=== PATIENT | female | born 2000 | race Caucasian/White ===

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

== ENCOUNTER → 2021-02-06 13:59 | Outpatient (CLI) | payer OTHER, SELFPAY ==
[2021-02-06 15:20] LABS: Add Manual Diff / Slide Review NO; Basophils Absolute Auto 0 /uL (0-100); Basophils Percent Auto 0.2 % (0-2); Eosinophils Absolute Auto 100 /uL (0-450); Eosinophils Percent Auto 1.9 % (2-4); Hematocrit 43.1 % (36-46); Hemoglobin 14.9 g/dL (12.0-16.0); Lymphocytes Absolute Auto 2000 /uL (1100-4500); Lymphocytes Percent Auto 36.3 % (25-40); Mean Corpuscular HGB Conc 34.6 % (30-36); Mean Corpuscular Hemoglobin 31.6 PG (26-34); Mean Corpuscular Volume 91.2 fL (80-100); Monocytes Absolute Auto 400 /uL (0-900); Monocytes Percent Auto 7.3 % (3-14); Neutrophils Absolute Auto 2900 /uL (1500-7000); Neutrophils Percent Auto 54.3 % (50-75); Platelet Count 220 X10^3/uL (150-400); Red Blood Cell Count 4.72 X10^6/uL (4.0-5.2); Red Cell Distribution Width 12.6 % (11.6-14.8); White Blood Cell Count 5.4 X10^3/uL (4.5-11.0)
[2021-02-06 15:25] LABS: Alanine Aminotransferase 20 IU/L (<35); Albumin 4.6 g/dL (3.5-5.0); Albumin Globulin Ratio 1.4 (1.0-2.8); Alkaline Phosphatase 57 U/L (38-126); Aspartate Aminotransferase 31 IU/L (14-36); BUN Creatinine Ratio 15.7 (6-22); Bilirubin Total 0.5 mg/dL (0.2-1.3); Blood Urea Nitrogen 14 mg/dL (7-17); Carbon Dioxide 26 mmol/L (22-32); Chloride 105 mmol/L (98-107); Estimated Glomerular Filt Rate > 60.0 mL/min (>60); Globulin 3.3 g/dL (1.7-4.1); Glucose 87 mg/dL (70-100); HEMOLYSIS < 15 (0-50); Sodium 139 mmol/L (137-145); Total Protein 7.9 g/dL (6.3-8.2)
== END ==
PROVIDERS: PCP Registered Nurse; Referring Provider Registered Nurse; Visit Provider Registered Nurse
DX: Z30.40 Encounter for surveillance of contraceptives, unspecified (principal)
CPT/HCPCS: 36415; 80053; 85025

== ENCOUNTER → 2021-02-10 09:14 | Outpatient (CLI) | payer OTHER, SELFPAY ==
--- NOTE | 2021-02-10 09:16 | DI.US.S_ITS ---
PROCEDURE: US PELVIC COMPLETE INDICATIONS: IRREGULAR VAGINAL BLEEDING TECHNIQUE: Real-time scanning was performed of the pelvic organs, with image documentation. Additional endovaginal scanning was necessary due to incomplete visualization of the adnexal and endometrial structures by transabdominal scanning. COMPARISON: None. FINDINGS: Uterus: Uterus is anteverted and normal in size at 6.6 x 4.0 x 2.0 cm. The endometrium measures 2.4 mm in combined thickness. No myometrial masses Ovaries: There is a thin-walled cystic mass in the midline low pelvis likely compressing the urinary bladder measuring 8.7 x 9.1 x 9.5 cm. No definite internal complexity. A normal left ovary was not identified. There is no adjacent free fluid. The right ovary measures 5.8 x 1.9 x 3.2 cm and contains several small follicles. Additionally, there is an involuting cystic structure irregularly shaped within the right ovary measuring 1.8 x 0.5 x 1.6 cm. A trace amount of right adnexal fluid is present. There is normal vascular flow in the right ovary. Other: No pathologic free abdominal or pelvic fluid. Both kidneys demonstrate normal morphology without hydronephrosis. IMPRESSION: 1. 9.5 cm thin-walled cystic mass in the pelvis, potentially left ovarian in origin, less likely large bladder diverticulum or persistently distended urinary bladder despite voiding efforts. For further evaluation of the structure, pelvic MRI with contrast is recommended. 2. Normal thickness endometrium. No explanation for irregular vaginal bleeding. Dictated by: Margareth Key M.D. on 02/10/2021 at 14:30 Approved by: Margareth Key M.D. on 02/10/2021 at 14:41
== END ==
PROVIDERS: PCP Registered Nurse; Referring Provider Registered Nurse; Visit Provider Registered Nurse
DX: N92.6 Irregular menstruation, unspecified (principal); R19.00 Intra-abdominal and pelvic swelling, mass and lump, unspecified site
CPT/HCPCS: 76830; 76856

== ENCOUNTER → 2021-02-20 14:02 | Outpatient (CLI) | payer OTHER, SELFPAY ==
--- NOTE | 2021-02-20 14:04 | DI.MRI.S_ITS ---
PROCEDURE: MR PELVIS WO/W CON INDICATIONS: pelvic cyst TECHNIQUE: Coronal HASTE, sagittal breath-hold T2 FSE; axial T1 FSE with and without fat saturation through the pelvis. Optional long- and short-axis uterine nonbreath-hold T2 FSE through the uterus. Sagittal or axial dynamic VIBE during administration of contrast. Post-contrast axial or coronal VIBE/2-D FLASH with fat saturation from the iliac crests to the symphysis. Optional diffusion weighted imaging and ADC may be performed. COMPARISON: None. FINDINGS: Image quality: Excellent. Uterus: Uterus is normal in size. Uterus is vertically oriented. Endometrium is normal in thickness. Endometrium measures 0.3 cm. Junctional zone is normal in thickness at 12 mm or less. Adnexa: Large midline T2 hyperintense unilocular cyst in the pelvis measuring 10.7 x 9.7 x 8.7 cm, (3/ and 4/). The circumscribed and thin-walled cyst demonstrates homogeneous T2 signal, nonenhancing, and no restricted diffusion. No intrinsic T1 hyperintense or fat signal. No septation seen. It is possible this originates from the left ovary as the left ovary is not visualized. The right ovary is normal in size with small ovarian follicles. Urinary system: There is mass effect on the urinary bladder. Distal ureters are non distended. Urethra appears normal in morphology. Nodes and vessels: No pelvic or inguinal adenopathy by size criteria. Iliac vessels are normal in size. Bowel and peritoneum: No pathologic free pelvic fluid. Inferior colon and small bowel loops are normal in caliber. Soft tissues: No inguinal hernias. No findings of pelvic floor incompetence in the absence of provocation. Bones: Marrow demonstrates normal overall signal. IMPRESSION: 1. Large midline pelvic cyst measuring 10.7 cm. Overall the cyst demonstrates benign imaging features including circumscribed margin and thin wall, lack of enhancement, and homogeneous T2 hyperintense signal. This could represent a benign cyst such as serous cystadenoma or a paraovarian cyst. -Recommend gynecological consultation given its large-sized 2. The left ovary is not identified. 3. Right ovary appears normal. 4. No adenomyosis. 5. No free fluid. Dictated by: Josr Gold M.D. on 02/20/2021 at 16:18 Approved by: Josr Gold M.D. on 02/20/2021 at 16:34
== END ==
PROVIDERS: PCP Registered Nurse; Referring Provider Registered Nurse; Visit Provider Registered Nurse
DX: N94.89 Other specified conditions associated with female genital organs and menstrual cycle (principal)
CPT/HCPCS: 72197; A9579

== ENCOUNTER → 2021-03-09 09:24 | Outpatient (CLI) | payer OTHER, SELFPAY ==
[2021-03-09 17:01] LABS: COVID19 -Nasal RAPID Negative (Negative)
== END ==
PROVIDERS: PCP Registered Nurse; Visit Provider Obstetrics & Gynecology
DX: Z01.812 Encounter for preprocedural laboratory examination (principal); Z20.822 Contact with and (suspected) exposure to COVID-19
CPT/HCPCS: 87635

== ENCOUNTER 2021-03-10 08:17 | Day surgery (SDC) | payer OTHER, SELFPAY ==
[2021-03-10] VITALS (11 sets, daily range): BP systolic 84–136; BP diastolic 39–78; PULSE 43–75; RESP 11–16; TEMP 36.3–36.9; O2SAT 88–100; BMI 26.4
--- NOTE | 2021-03-10 | PATH_ITS ---
[facility] Accession Number: [id number] . 01 Material submitted: . ovary - PART OF LEFT OVARY AND CYST WALL . 01 Clinical history: . SDC . 02 Diagnosis: Part of Left Ovary and Cyst Wall, Laparoscopic Removal of Left Ovarian Cyst (disrupted measurement 7.0 x 6.0 x 3.0 cm): Ovary with a benign serous cystadenofibroma. Capsular adhesion of fimbriated tubal tissue; negative for atypia or malignancy. MRV 03/12/2021 1615 Local . 02 Electronically signed: . Jennie Lange MD, Pathologist NPI- [id number] . 01 Gross description: . The specimen is received in formalin, labeled left ovary and cyst wall and consists of a fragmented cystic ovary measuring 7.0 x 6.0 x 3.0 cm in aggregate. The external surface is gamez-pink to pink-purple and smooth with focal fibrinous adhesions. Sectioning reveals a gamez-pink wrinkled inner lining with papillary excrescences ranging from 0.1-2.0 cm. Marketing Editor sections are submitted. . A1-A3: Papillary excrescences entirely submitted (external surface inked blue). A4-A5: Additional healthcare representative cyst. ([id number]) /V 03/11/2021 0950 Local . 02 Pathologist provided ICD-10: R19.00, N83.202 . 02 CPT . 182073 Specimen Comment: A duplicate report has been generated due to demographic updates. Performed at: 01 [facility] [address] [facility], [place], [place] [id number] MD Devonte Goodson MD Phone: [phone] Performed at: 02 [facility] [id number] [address] [place] [id number] MD Maddy Howard MD Phone: [phone]
--- NOTE | 2021-03-10 07:27 | P.HP_ITS ---
History of Present Illness History of Present Illness Date Patient Seen: 03/10/21 Time Patient Seen: 09:28 Chief complaint: TXC Narrative: Patient is a 20-year-old 0 with a 10 cm pelvic mass here for laparoscopic removal of the mass. Patient History Medical History (Updated 03/10/21 @ 06:54 by Mely Eduardo MD) Contraceptive use Irregular menstrual cycle Ovarian cyst Pelvic cyst Surgical History (Updated 03/10/21 @ 06:53 by Mely Eduardo MD) Surgical procedure planned (~2006) [place] teeth extracted Family & Social History Family History (Updated 03/05/21 @ 14:43 by Jessica Goins) Father Hypertension Tobacco & Substance use: Smoking Status Never smoker Meds Home Medications and Allergies Home Medications Medication Instructions Recorded Confirmed Type norethindrone 1.5 mg-ethinyl 1 tab PO DAILY #84 tab 02/06/21 03/10/21 Rx estradiol 30 mcg(21)/iron 75 mg(7) tablet Allergies Allergy/AdvReac Type Severity Reaction Status Date / Time No Known Drug Allergies Allergy Verified 03/10/21 08:34 Exam Narrative Exam Narrative: HEENT: No thyromegaly, no anterior cervical or supraclavicular lymphadenopathy. Lungs:Clear to auscultation bilaterally, no wheezes. Cardiovascular: Regular rate and rhythm, no murmurs, rubs, or gallops. Abdomen: No scars. No hepatosplenomegaly. No masses palpable. External genitalia: Deferred Vagina: Deferred Cervix: Deferred Bimanual exam: Deferred Rectal: Deferred Assessment & Plan Assessment & Plan narrative: Assessment: 20-year-old 0 with a 10 cm pelvic mass most likely originating from the left adnexa Plan: Laparoscopic removal of the pelvic mass The risks, benefits, and alternatives to the procedure were explained to the patient. The risks including bleeding, infection, injury to the bowel, bladder, or ureters. She also understands that there is a possibility that she may lose the left tube. She understands these risks and agrees to proceed. A full par Q was held and consent form was signed. COVID-19 COVID-19 status: Negative Result date/Date tested (Pos, Neg/Pending): 03/09/21 Time Spent With Patient Time with patient: less than 15 minutes
--- NOTE | 2021-03-10 07:32 | PM.PREOP ---
Pre-operative Note COVID-19 COVID-19 status: Negative Result date/Date tested (Pos, Neg/Pending): 03/09/21 Interval Note History & Physical reviewed/Exam performed by Physician: Yes Changes to H&P: No H&P completed within 30 days and has changed as indicated here:: 03/10/21
[2021-03-10] MEDS: ACETAMINOPHEN 325 MG TABLET 975 MG PO (08:32)
[2021-03-10] MEDS: LACTATED RINGERS 1,000 ML 42 ML IV ×2 (09:12→11:36)
[2021-03-10] MEDS: ACETAMINOPHEN IV 1,000 MG/100 ML VIAL 400 MG IV (10:00)
[2021-03-10] MEDS: BUPIVACAINE 0.25% (PF) VIAL 30 ML INJ (10:33)
[2021-03-10] MEDS: EPINEPHrine 1 MG/ML SUBCUT (10:34)
--- NOTE | 2021-03-10 10:36 | SUR.OPER ---
Lithotomy on padded OR bed, head on pillow, bilateral arms padded with gel pads and tucked at sides. Legs secured in padded yellow fins stirrups.
[2021-03-10] MEDS: ROPIVACAINE 0.2% PF 2 MG/ML 10ML AMP 10 ML INJ (11:32)
--- NOTE | 2021-03-10 11:52 | PM.GYNOP.1 ---
Operative Date/Time/Diagnoses Date of procedure: 03/10/21 Time of procedure: 11:52 Pre-op diagnosis: Left adnexal cyst Post-op diagnosis: same Procedure & Clinicians Procedure: Procedures Operation Date: 03/10/21 09:45 Actual Procedure Side Surgeon p Laparoscopic removal of Left Ovarian cyst Left Mely Eduardo MD Indications: 11 cm pelvic cyst Surgeon: Mely Eduardo Anesthesia Type: General and Local Operative Notes Findings: 11 cm simple cyst originating from the left ovary Normal uterus and tubes Normal right ovary Normal liver gallbladder Normal appendix Closure Type: primary Specimen(s): other (Left ovarian cyst, fluid from left ovarian cyst) Estimated blood loss (mL): 10 Blood products transfused: none Procedure in detail: After informed consent was obtained, the patient was taken to the operating room where she was placed in the dorsal supine position. After adequate general endotracheal anesthesia was achieved, she was placed in the dorsal lithotomy position, and prepped and draped in the usual sterile fashion. A time-out was performed. A bivalve speculum was placed into the vagina and the anterior lip of the cervix grasped with a single-tooth tenaculum. The cervical os was sequentially dilated until the Zumi uterine manipulator could pass easily into the endometrial cavity. Single-tooth tenaculum was removed from the anterior lip of the cervix. The bivalve speculum was removed from the vagina. Attention was then turned to the abdomen where 6 cc of 0.5% Marcaine were injected in the umbilical fold. A 5 mm incision was made. Veress needle was placed into the peritoneal cavity, and its placement confirmed by aspiration drop test. The abdominal cavity was insufflated with 3 L of CO2. The Veress needle was removed, and a 5 mm trocar was placed under direct visualization. There was found to be an 11 cm cystic mass on the left ovary. 2 other incisions were made 4 cm lateral to the midline at the level of the umbilicus after 6 cc of 0.5% Marcaine with epinephrine were injected. 2 5 mm trocars were placed under direct visualization. The capsule of the cyst was grasped with an atraumatic grasper. Using the Endo Carlotta and blunt probe the cyst was dissected out of the ovary. At 1 point a suction aspirate her was used to suction approximately 100 cc of clear fluid. The cyst was then grasped and using the PlasmaKinetic with settings at 40 w the cyst was disconnected from the ovary with cautery and cut. There was no spill. 6 cc of 0.5% Marcaine were injected above the pubic symphysis. A 10 mm trocar was placed. Small endobag was placed into the pelvis and the cyst from the left ovary was placed into the bag. The trocar was removed. The bag was pulled up through the incision and sent to pathology. The pelvis was examined and was found to be normal. The instruments were removed from the abdomen. The CO2 was allowed to escape. The suprapubic incision was closed on the fascia with 0 Vicryl. All of the incisions were closed on the skin with 4-0 Monocryl in a subcuticular fashion. Steri-Strips and Allevyn dressings were placed. The Zumi uterine manipulator was removed from the uterus. Sponge, lap, and instrument counts were correct x2. The patient tolerated the procedure well, and was taken to PACU in stable condition. Complications: none Post-operative Condition: stable Disposition: PACU Plan for aftercare: Home after recovery
[2021-03-10] MEDS: OXYCODONE IR 5 MG TABLET PO (12:46)
[2021-03-10] MEDS: ONDANSETRON 4 MG/2 ML INJ IV (12:48)
== END 2021-03-10 14:00 | disposition home or self-care (01) ==
PROVIDERS: PCP Registered Nurse; Referring Provider Obstetrics & Gynecology; Visit Provider Obstetrics & Gynecology
PROC: (CPT 49320; principal; 2021-03-10 09:45)
DX: D27.1 Benign neoplasm of left ovary (principal)
CPT/HCPCS: 58662; 81025; J0131; J0171; J1100; J1885; J2250; J2405; J2704; J2795; J3010

== ENCOUNTER → 2021-04-23 08:33 | Outpatient (CLI) | payer OTHER, SELFPAY ==
[2021-04-23 09:06] LABS: COVID19 -Nasal RAPID Negative (Negative)
== END ==
PROVIDERS: PCP Registered Nurse; Visit Provider Nurse Practitioner
DX: Z20.822 Contact with and (suspected) exposure to COVID-19 (principal); R05.9 Cough, unspecified; R09.89 Other specified symptoms and signs involving the circulatory and respiratory systems; R51.9 Headache, unspecified
CPT/HCPCS: 87635

== ENCOUNTER → 2021-06-05 13:47 | Outpatient (CLI) | payer OTHER, SELFPAY ==
[2021-06-05 14:15] LABS: COVID19 -Nasal RAPID Negative (Negative)
== END ==
PROVIDERS: PCP Registered Nurse; Visit Provider Nurse Practitioner Family
DX: Z20.822 Contact with and (suspected) exposure to COVID-19 (principal)
CPT/HCPCS: 87635

== ENCOUNTER → 2021-06-15 13:39 | Outpatient (CLI) | payer OTHER, SELFPAY ==
--- NOTE | 2021-06-15 13:42 | DI.US.S_ITS ---
PROCEDURE: US PELVIC COMPLETE INDICATIONS: LEFT PELVIC PAIN. HISTORY OF LEFT OVARIAN CYST REMOVAL. TECHNIQUE: Real-time scanning was performed of the pelvic organs, with image documentation. Additional endovaginal scanning was necessary due to incomplete visualization of the adnexal and endometrial structures by transabdominal scanning. COMPARISON: [facility], , US PELVIC COMPLETE, 02/10/2021, 9:29. FINDINGS: Uterus: Uterus is anteverted and normal in size at 6.5 x 4 x 2 point cm. The myometrium is predominant homogeneous. The endometrium measures 0.7 mm combined thickness. Ovaries: The right ovary measures 3.1 x 3.1 x 1.9 cm. Normal flow demonstrated. The left ovary measures 2.4 x 1.5 x 0.9 cm. Normal flow demonstrated. No adnexal masses are seen. Other: No pathologic free abdominal or pelvic fluid. IMPRESSION: No significant abnormality. We strive to produce accurate, complete, and clear reports of imaging services. To assist us in improving patient care, this report was composed using standard report templates and voice recognition software. Therefore, it may contain abnormal punctuation, insertions and/or omissions. Occasional wrong-word or sound-alike substitutions may occur. Though we review the report and make efforts to correct it, we do recommend that the report be read carefully in proper context to recognize any text inaccuracies. Dictated by: Romeo Jackson M.D. on 06/15/2021 at 14:20 Approved by: Romeo Jackson M.D. on 06/15/2021 at 14:23
== END ==
PROVIDERS: PCP Registered Nurse; Referring Provider Registered Nurse; Visit Provider Registered Nurse
DX: R10.2 Pelvic and perineal pain (principal)
CPT/HCPCS: 76856

== ENCOUNTER → 2021-10-08 12:23 | Outpatient (CLI) | payer OTHER, SELFPAY ==
[2021-10-08 13:45] LABS: Add Manual Diff / Slide Review NO; Basophils Absolute Auto 0 /uL (0-100); Basophils Percent Auto 0.3 % (0-2); Eosinophils Absolute Auto 200 /uL (0-450); Eosinophils Percent Auto 2.9 % (2-4); Hematocrit 39.5 % (36-46); Hemoglobin 13.9 g/dL (12.0-16.0); Lymphocytes Absolute Auto 1400 /uL (1100-4500); Lymphocytes Percent Auto 21.5 % (25-40); Mean Corpuscular HGB Conc 35.2 % (30-36); Mean Corpuscular Hemoglobin 31.7 PG (26-34); Mean Corpuscular Volume 90.1 fL (80-100); Monocytes Absolute Auto 400 /uL (0-900); Monocytes Percent Auto 6.2 % (3-14); Neutrophils Absolute Auto 4600 /uL (1500-7000); Neutrophils Percent Auto 69.1 % (50-75); Platelet Count 212 X10^3/uL (150-400); Red Blood Cell Count 4.38 X10^6/uL (4.0-5.2); Red Cell Distribution Width 12.6 % (11.6-14.8); White Blood Cell Count 6.7 X10^3/uL (4.5-11.0)
[2021-10-08 17:07] LABS: Vitamin D 25 Hydroxy (D3) 44.9 ng/mL (30.0-100.0)
== END ==
PROVIDERS: PCP Family Medicine; Referring Provider Family Medicine; Visit Provider Family Medicine
DX: E55.9 Vitamin D deficiency, unspecified (principal); F41.9 Anxiety disorder, unspecified; N83.209 Unspecified ovarian cyst, unspecified side
CPT/HCPCS: 36415; 82306; 85025

== ENCOUNTER → 2024-07-09 09:31 | Outpatient (CLI) | payer OTHER, SELFPAY ==
[2024-07-09 10:05] LABS: Add Manual Diff / Slide Review NO; Basophils Absolute Auto 0 /uL (0-100); Basophils Percent Auto 0.3 % (0-2); Eosinophils Absolute Auto 200 /uL (0-450); Hematocrit 41.4 % (36-46); Hemoglobin 14.3 g/dL (12.0-16.0); Lymphocytes Absolute Auto 1900 /uL (1100-4500); Lymphocytes Percent Auto 22.2 % (25-40); Mean Corpuscular HGB Conc 34.7 % (30-36); Mean Corpuscular Volume 92.3 fL (80-100); Monocytes Absolute Auto 500 /uL (0-900); Monocytes Percent Auto 5.6 % (3-14); Neutrophils Absolute Auto 6100 /uL (1500-7000); Neutrophils Percent Auto 69.9 % (50-75); Platelet Count 209 X10^3/uL (150-400); Red Blood Cell Count 4.48 X10^6/uL (4.0-5.2); Red Cell Distribution Width 12.2 % (11.6-14.8); White Blood Cell Count 8.7 X10^3/uL (4.5-11.0)
[2024-07-09 10:14] LABS: Hemoglobin A1C% w Est Avg Glu 4.9 % (4.0-6.0)
[2024-07-09 10:17] LABS: Alanine Aminotransferase 20 IU/L (<35); Albumin 4.4 g/dL (3.5-5.0); Albumin Globulin Ratio 1.6 (1.0-2.8); Alkaline Phosphatase 51 U/L (38-126); Aspartate Aminotransferase 32 IU/L (14-36); BUN Creatinine Ratio 12.2 (6-22); Bilirubin Total 0.4 mg/dL (0.2-1.3); Blood Urea Nitrogen 11 mg/dL (7-17); Calcium 9.7 mg/dL (8.4-10.2); Carbon Dioxide 23 mmol/L (22-32); Chloride 107 mmol/L (98-107); Cholesterol 210 mg/dL (140-199); Estimated Glomerular Filt Rate > 60 mL/min (>60); Globulin 2.7 g/dL (1.7-4.1); Glucose 91 mg/dL (70-100); HDL Cholesterol 93 mg/dL (40-60); HEMOLYSIS < 15 (0-50); LDL Cholesterol Calculated 88 mg/dL (<100); Potassium 4.7 mmol/L (3.4-5.1); Sodium 137 mmol/L (137-145); Total Protein 7.1 g/dL (6.3-8.2); Triglycerides 147 mg/dL (35-150)
[2024-07-09 10:34] LABS: HCG Quantitative /Beta subunit < 2.39 mIU/mL
[2024-07-09 10:48] LABS: TSH w/ Reflex to FT4 1.95 uIU/mL (0.47-4.68); Thyroid Stimulating Hormone 1.95 uIU/mL (0.47-4.68)
[2024-07-10 14:24] LABS: Hep C Virus Ab w/Reflex Quant NEGATIVE s/c (NEGATIVE)
== END ==
PROVIDERS: PCP Registered Nurse; Referring Provider Registered Nurse; Visit Provider Registered Nurse
DX: Z00.00 Encounter for general adult medical examination without abnormal findings (principal); Z13.0 Encounter for screening for diseases of the blood and blood-forming organs and certain disorders involving the immune mechanism; Z11.59 Encounter for screening for other viral diseases; Z13.220 Encounter for screening for lipoid disorders; Z13.29 Encounter for screening for other suspected endocrine disorder; N92.6 Irregular menstruation, unspecified
CPT/HCPCS: 36415; 80053; 80061; 83036; 84443; 84702; 85025; 86803

== ENCOUNTER → 2024-07-12 10:42 | Outpatient (CLI) | payer OTHER, SELFPAY ==
--- NOTE | 2024-07-12 10:45 | DI.US.S_ITS ---
PROCEDURE: US PELVIC COMPLETE INDICATIONS: IRREGULAR MESTRUAL BLEEDING TECHNIQUE: Real-time scanning was performed of the pelvic organs, with image documentation. Additional endovaginal scanning was necessary due to incomplete visualization of the adnexal and endometrial structures by transabdominal scanning. COMPARISON: [facility], [place], US PELVIC COMPLETE, 08/10/2021, 14:53. FINDINGS: Uterus: Uterus is anteverted and normal in size at 7.5 x 2.3 x 4.2 cm. The myometrium is homogeneous. The endometrium measures 1 mm combined thickness. Slight septation is noted within the fundal region, possible arcuate uterine morphology. Ovaries: The right ovary measures 2.7 x 2.8 x 1.8 cm, with a calculated ovarian volume of 7.2 cc. The left ovary measures 1.6 x 0.6 x 1.2 cm, with a calculated ovarian volume of 0.5 cc. The ovaries have a normal sonographic appearance. Greater than 12 follicles can be seen in the right ovary. No adnexal masses are seen. Other: No pathologic free abdominal or pelvic fluid. IMPRESSION: Greater than 12 follicles are seen in the right ovary, a nonspecific finding which can be seen with polycystic ovarian syndrome. Recommend clinical correlation. Endometrium is thin measuring 1 mm. Slight septation is noted within the uterine fundus, may represent mild arcuate uterine morphology. We strive to produce accurate, complete, and clear reports of imaging services. To assist us in improving patient care, this report was composed using standard report templates and voice recognition software. Therefore, it may contain abnormal punctuation, insertions and/or omissions. Occasional wrong-word or sound-alike substitutions may occur. Though we review the report and make efforts to correct it, we do recommend that the report be read carefully in proper context to recognize any text inaccuracies. Dictated by: Gavino Marcelo M.D. on 07/12/2024 at 14:25 Approved by: Gavino Marcelo M.D. on 07/12/2024 at 14:29
== END ==
PROVIDERS: PCP Registered Nurse; Referring Provider Registered Nurse; Visit Provider Registered Nurse
DX: N92.6 Irregular menstruation, unspecified (principal)
CPT/HCPCS: 76830; 76856